=== PATIENT | female | born 1960 | race Caucasian/White ===

== ENCOUNTER → 2017-08-12 | Outpatient (CLI) | payer MEDICAID ==
[~2017-08-12] MED LIST: ATOR20TA9 PO; GABA300C10 PO; HYDR-3237 PO; HYDR-3240 PO; METH750T87 PO; OMEP10CA4 PO; PANT40TA5 PO; PARO10TA3 PO; TRAM50TA2 PO
== END ==
LOC: STAR 08:00
PROVIDERS: ATTEND Obstetrics & Gynecology Female Pelvic Medicine and Reconstructive Surgery
DX: Z02.9 Encounter for administrative examinations, unspecified (principal)

== ENCOUNTER 2017-08-19 08:08 | Day surgery (SDC) | payer MEDICAID ==
[2017-08-12 09:30] VITALS: BP 125/86
[~2017-08-19] VITALS: Ht 154.9 cm; Wt 75.4 kg
[~2017-08-19 08:08] MED LIST changes: +BUPIVACAINE/PF 0.25% ONE; +EPINEPHRINE 1 MG/ML, 1ML ONE; +NEOMY/POLYMYXIN B GU IRR. 1 ML IRRIG ONE
[2017-08-19] MEDS ORDERED: LIDOCAINE 1%, 2ML ONE (09:00)
[2017-08-19 09:11] LABS: HCG UR LOT HCG7030192
[2017-08-19 09:25] LABS: HCG UR OBC PASS
[2017-08-19] MEDS ORDERED: LACTATED RINGERS 1,000 ML IV SCH (09:25)
[2017-08-19] MEDS ORDERED: LIDOCAINE 1%, 2ML SQ PRN (09:30)
[2017-08-19 09:31] VITALS: BP 125/86
[2017-08-19] MEDS ORDERED: DEXAMETHASONE 4 MG/ML, 1ML ONE (10:19)
[2017-08-19] MEDS ORDERED: NEOSTIGMINE 1 MG/ML, 10ML ONE (10:19)
[2017-08-19] MEDS ORDERED: ONDANSETRON 2MG/ML, 2ML ONE (10:19)
[2017-08-19] MEDS ORDERED: GLYCOPYRROLATE 0.2MG/1ML, 5ML ONE (10:19)
[2017-08-19] MEDS ORDERED: SUCCINYLCHOLINE 20 MG/ML, 10ML ONE (10:19)
[2017-08-19] MEDS ORDERED: FENTANYL PF 250 MCG/5ML ONE (10:19)
[2017-08-19] MEDS ORDERED: ROCURONIUM 10 MG/ML,10ML ONE (10:19)
[2017-08-19] MEDS ORDERED: MIDAZOLAM 1 MG/ML, 2ML ONE (10:19)
[2017-08-19] MEDS ORDERED: CEFAZOLIN 1,000 MG ONE (10:19)
[2017-08-19] MEDS ORDERED: PROPOFOL 10 MG/ML, 20ML ONE (10:19)
[2017-08-19] MEDS ORDERED: LABETALOL 5MG/ML, 20ML ONE (10:39)
[2017-08-19] MEDS ORDERED: LIDOCAINE 4%, 4 ML SYR/CANN TP ONE (11:13)
[2017-08-19] MEDS ORDERED: FENTANYL PF 100 MCG/2ML IV PRN (11:30)
[2017-08-19] MEDS ORDERED: PROMETHAZINE 25 MG/ML, 1ML IV PRN (11:30)
[2017-08-19] MEDS ORDERED: ONDANSETRON 2MG/ML, 2ML IVPush PRN ×2 (11:30→18:00)
[2017-08-19] MEDS ORDERED: ACETAMINOPHEN 325 MG TABLET PO PRN ×2 (11:30→18:00)
[2017-08-19] MEDS ORDERED: LABETALOL 5MG/ML, 20ML IV PRN (11:30)
[2017-08-19] MEDS ORDERED: OXYcodone 5 MG/5 ML ORAL.SOL UDC PO PRN (11:30)
[2017-08-19] MEDS ORDERED: HYDROmorphone 1 MG/ML, 1ML IV PRN (11:30)
[2017-08-19] MEDS ORDERED: HYDROmorphone 2 MG/ML, 1ML ONE (11:48)
[2017-08-19] MEDS ORDERED: OXYcodone 5 MG/5 ML ORAL.SOL UDC ONE (13:07)
[2017-08-19] MEDS ORDERED: ACETAMINOPHEN 650 MG/20.3 ML UDC ONE (13:07)
[2017-08-19] MEDS ORDERED: OXYcodone/APAP 5/325MG TABLET ONE (17:47)
[2017-08-19] MEDS ORDERED: IBUPROFEN 600 MG TABLET ONE (17:48)
[2017-08-19] MEDS ORDERED: ACETAMINOPHEN 650 MG SUPP PR PRN (18:00)
[2017-08-19] MEDS ORDERED: HYDROcodone/APAP 5/325 TABLET PO PRN (18:00)
[2017-08-19] MEDS ORDERED: OXYcodone/APAP 5/325MG TABLET PO PRN (18:00)
[2017-08-19] MEDS ORDERED: HYDROmorphone 2 MG/ML, 1ML IVPush PRN (18:00)
[2017-08-19] MEDS ORDERED: IBUPROFEN 600 MG TABLET PO SCH (18:00)
== END 2017-08-19 18:50 ==
LOC: OUT 08:08
PROVIDERS: ATTEND Obstetrics & Gynecology Female Pelvic Medicine and Reconstructive Surgery
DX: N95.0 Postmenopausal bleeding (principal); N94.10 Unspecified dyspareunia; N81.89 Other female genital prolapse; N39.3 Stress incontinence (female) (male); N92.1 Excessive and frequent menstruation with irregular cycle; N81.5 Vaginal enterocele; I10 Essential (primary) hypertension; E78.5 Hyperlipidemia, unspecified; Z98.890 Other specified postprocedural states
CPT/HCPCS: 57265; 57288; 58552; 81025; 88307; C1771; J0171; J0330; J0690; J1100; J1170; J2250; J2405; J2704; J2710; J3010; J3490; J7120